=== PATIENT | female | born 1965 | race Caucasian/White ===

== ENCOUNTER → 2016-07-05 | Outpatient (CLI) | payer OTHER ==
--- NOTE | 2016-07-05 09:53 | DX ---
Biphasic Esophagram CLINICAL HISTORY: 50-year-old female with a history of reflux symptoms who indicated that a pill was stuck in her throat 3 days ago and she still has discomfort at the base of the neck as a result. TECHNIQUE: Initially, thin barium was ingested by the patient while standing and fluoroscopy was perf ormed. Subsequently, the patient ingested effervescent crystals and thick barium and imaging of the h ypopharynx of the cervical and thoracic esophagus was performed while standing. The patient also eldon sted a 13 mm tablet with water. She was then placed in a prone LEMUS position, and thin barium was eldon sted while a Valsalva maneuver was performed. Finally she was placed in a prone position and a Valsal va maneuver was performed. Fluoroscopy Time: 2.3 minutes (exposure dose of 73.40 mGy) COMPARISON STUDY: None. FINDINGS: There is normal oropharyngeal propulsion of the bolus into the hypopharynx with a normal, s ymmetrical appearance to the vallecula and piriform sinuses. The posterior cervical esophagus is norm al. There is no cricopharyngeus spasm, achalasia, or Zenker diverticulum. There was no aspiration. Th ere is antegrade esophageal motility, and a normal-appearing mucosa. There is no esophageal stricture . When the patient went from a standing to a supine and/or prone position, there were some episodes o f gastroesophageal reflux, at one point reaching the mid thoracic esophagus and then clearing. There is no esophageal ulceration, pulsion diverticulum, or stricture. There was no evidence of hiatal miguel ia, despite provocative maneuvers. I provided a preliminary dictation to the patient at time of exam performance. IMPRESSION: 1. There were episodes of gastroesophageal reflux when the patient was supine and/or prone, at one po int to the mid-thoracic esophagus, and then clearing. There is no esophageal ulceration or stricture. 2. There is no focal abnormality at the cervical-thoracic esophageal junction where the patient has h ad some mild discomfort. If there is continuing clinical concern regarding the patient's symptoms, en doscopic correlation is suggested.
== END ==
LOC: FIMAGING 08:10
PROVIDERS: ATTEND Physician Assistant Medical
DX: R13.19 Other dysphagia (principal); K21.9 Gastro-esophageal reflux disease without esophagitis

== ENCOUNTER → 2017-06-07 | Outpatient (CLI) | payer OTHER | LOC: FIMAGING 07:49 | PROVIDERS: ATTEND Nurse Practitioner Women's Health | DX: Z12.31 Encounter for screening mammogram for malignant neoplasm of breast (principal); Z80.3 Family history of malignant neoplasm of breast | CPT/HCPCS: G0202 ==

== ENCOUNTER → 2018-06-14 | Outpatient (CLI) | payer OTHER | LOC: FIMAGING 08:11 | PROVIDERS: ATTEND Nurse Practitioner Women's Health | DX: Z12.31 Encounter for screening mammogram for malignant neoplasm of breast (principal) ==